=== PATIENT | female | born 1970 | race Caucasian/White ===

== ENCOUNTER → 2017-07-20 | Outpatient (CLI) | payer OTHER ==
[~2017-07-20] MED LIST: BUPR-79 PO; FLX/5 PO; RXC5 PO
== END | disposition home or self-care (01) ==
LOC: C.LABSPEC 16:48
PROVIDERS: ATTEND Orthopaedic Surgery
DX: T81.4XXA Infection following a procedure, initial encounter (principal); Y83.9 Surgical procedure, unspecified as the cause of abnormal reaction of the patient, or of later complication, without mention of misadventure at the time of the procedure

== ENCOUNTER 2022-05-30 08:22 | Inpatient (IN) ==
--- NOTE | 2022-05-03 14:47 | PAT Medication Instructions ---
Medication Instructions Date of Service May 03, 2022 Home Medications Medication Instructions Recorded albuterol sulfate 90 mcg/actuation 2 puff inhalation BID #18 grams 01/11/19 aerosol inhaler (Ventolin HFA) clonazepam 1 mg tablet (Klonopin) 1 mg PO BID PRN Anxiety #60 tabs 01/11/19 ibuprofen 200 mg tablet 200 - 600 mg PO DIRECTED PRN 01/11/19 Pain #20 tabs ibuprofen 600 mg tablet 600 mg PO TID #90 tabs 06/05/19 albuterol sulfate 90 mcg/actuation aerosol inhaler (Ventolin HFA) 2 puff inhalation BID cholecalciferol (vitamin D3) 50 mcg (2,000 unit) capsule 2,000 units PO QAM clonazepam 1 mg tablet (Klonopin) 1 mg PO BID PRN ibuprofen 200 mg tablet 200 - 600 mg PO DIRECTED PRN duloxetine 30 mg capsule,delayed release 30 mg PO DAILY duloxetine 60 mg capsule,delayed release 60 mg PO DAILY ibuprofen 600 mg tablet 600 mg PO TID Medical Marijauna 1 dose inhalation DAILY PRN buprenorphine 100 mg/0.5 mL solution,exten.rel.subcutaneous syringe 100 mg subcut MONTHLY Continue as directed duloxetine 30 mg capsule,delayed release 30 mg PO DAILY duloxetine 60 mg capsule,delayed release 60 mg PO DAILY buprenorphine 100 mg/0.5 mL solution,exten.rel.subcutaneous syringe 100 mg subcut MONTHLY ASK your surgeon for instructions ibuprofen 200 mg tablet 200 - 600 mg PO DIRECTED PRN ibuprofen 600 mg tablet 600 mg PO TID STOP taking 24 hours before surgery Medical Marijauna 1 dose inhalation DAILY PRN DO NOT take the morning of surgery cholecalciferol (vitamin D3) 50 mcg (2,000 unit) capsule 2,000 units PO QAM Take morning of surgery With a small sip of water, OTHERWISE NOTHING TO EAT OR DRINK AFTER MIDNIGHT: albuterol sulfate 90 mcg/actuation aerosol inhaler (Ventolin HFA) 2 puff inhalation BID clonazepam 1 mg tablet (Klonopin) 1 mg PO BID PRN(if needed) Take evening before surgery albuterol sulfate 90 mcg/actuation aerosol inhaler (Ventolin HFA) 2 puff inhalation BID clonazepam 1 mg tablet (Klonopin) 1 mg PO BID PRN(if needed) Other Notes If you have any questions please call us at [phone] or [phone] or [phone] or [phone]
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
[~2022-05-30 08:22] MED LIST changes: +ACETAMINOPHEN 500 MG TAB PO SCH; -BUPR-79 PO; +CeleBREX 200 MG CAP PO SCH; -FLX/5 PO; +GABAPENTIN 900 MG DOSE PO SCH; +LR 15ML/HR IV SCH; -RXC5 PO; +ceFAZolin 1000MG 1,000 MG/7.5 ML SYR IV SCH
[2022-05-30] MEDS ORDERED: ePHEDrine sulfate 50 MG/ML AMP IV PRN (08:51)
[2022-05-30] MEDS ORDERED: HYDROmorphone INJ 1 MG/ML SYRINGE IV PRN ×2 (08:51→13:22)
[2022-05-30] MEDS ORDERED: ATROPINE SULFATE 0.1 MG/ML 10ML SYR IV PRN (08:51)
[2022-05-30] MEDS ORDERED: ONDANSETRON INJ 2 MG/ML 2 ML VIAL IV PRN ×2 (08:51→13:22)
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
--- NOTE | 2022-05-30 09:30 | History & Physical Bridge Note ---
Date of Service May 30, 2022 History & Physical Bridge Note I have examined the patient, reviewed the History & Physical and in the interval since the performance of the History & Physical I have noted the following changes of clinical significance: no changes noted
[2022-05-30] MEDS ORDERED: BUPIVACAINE/EPINEPHRINE 0.25% 1:200,000 30 ML VIAL ONE (09:40)
[2022-05-30] MEDS ORDERED: ceFAZolin 330 MG/ML 1 GM VIAL ONE (09:40)
[2022-05-30] MEDS ORDERED: PHENYLEPHRINE 100MCG/ML 5ML SYR ONE (10:38)
[2022-05-30] MEDS ORDERED: ePHEDrine sulfate 50 MG/ML SYR ONE (10:38)
[2022-05-30] MEDS ORDERED: ROCURONIUM BROMIDE 10 MG/ML 5 ML VIAL IV ONE (10:38)
[2022-05-30] MEDS ORDERED: LARYING-O-JET KIT (LTA) ONE (10:38)
[2022-05-30] MEDS ORDERED: GLYCOPYRROLATE 0.2 MG/ML VIAL ONE (10:38)
[2022-05-30] MEDS ORDERED: MIDAZOLAM HCL 1 MG/ML 2ML VIAL ONE (10:38)
[2022-05-30] MEDS ORDERED: DEXAMETHASONE SOD INJ 4 MG/ML VIAL ONE (10:38)
[2022-05-30] MEDS ORDERED: ONDANSETRON INJ 2 MG/ML 2 ML VIAL ONE (10:38)
[2022-05-30] MEDS ORDERED: PROPOFOL IV EMULSION 10 MG/ML 20 ML VIAL IV ONE (10:38)
[2022-05-30] MEDS ORDERED: NEOSTIGMINE METHYLSULFATE 1 MG/ML 10ML VIAL ONE (10:38)
[2022-05-30] MEDS ORDERED: fentaNYL citrate 100 MCG/2 ML VIAL ONE (10:38)
[2022-05-30] MEDS ORDERED: LIDOCAINE 2% MPF LOCAL 5 ML VIAL INFIL ONE (10:38)
[2022-05-30] MEDS ORDERED: HYDROmorphone INJ 2 MG/ML SYR/VIAL ONE (10:44)
[2022-05-30] MEDS ORDERED: FLOSEAL HEMOSTATIC MATRIX 10ML TOP ONE (10:54)
--- NOTE | 2022-05-30 11:43 | Operative Report ---
Post Operative Report Pre & Post Diagnosis Operation Date: 05/30/22 09:55 Pre-Op Diagnosis: Lumbar stenosis with neurogenic claudication Post-Op Diagnosis: Lumbar stenosis with neurogenic claudication I identified the patient and participated in the time-out.: Yes Procedure Operation Date: 05/30/22 09:55 Actual Procedures #1 removal of instrumentation L3. #2 exploration of fusion L3-L4. #3 lumbar decompression bilateral medial facetectomies and foraminotomies L1-L2 L2-L3. #4 posterior spinal fusion L2-L3. #5 placement posterior instrumentation L2-L3. #6 interbody fusion L2-L3. #7 placement of Spira 9 mm cage at L2-L3. #8 placement of locally harvested morselized autograft in the posterior gutters per #9 placement of I factor model V toss in the interbody space and posterior lateral gutters. 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 Description of Procedure Patient was met with identified informed consent obtained. Patient was then taken to the operative suite underwent ablation placed in a prone position the John table top Kameron frame. All bony prominences well-padded eyes inspected to ensure no external pressure placed upon them. This point lumbar spine was prepped and draped sterile fashion. Sharp dissection with the assistance of Bovie cautery was performed down to and exposing the lamina and transverse processes of L2 and instrumentation at L3-L4 bilaterally. And then proceeded move the connector and pedicle screw at L3 and explore the fusion mass at L3-L4 bilaterally noting it to be mature and intact. Then performed a complete laminectomy of L2 partial laminectomy of L1 including bilateral medial facetectomies and foraminotomies addressing severe spinal stenosis. Pedicle screws were then placed L2 and a miguel was connected from L2 to the pre-existing miguel at L3-L4 with a connector. By way of transforaminal approach on the right a complete discectomy of L2-L3 was performed endplates curetted to subcortical bleeding bone and 9 x 26 mm spiral cage with I factor tapped in position. The rods then locked in final position bilaterally. The transverse processes of L2 and L3 burred to subcortical bleeding bone. I factor model V toss and locally harvested morselized autograft was placed in the posterior gutters. 15 round YANETH drain inserted. The incision was then closed with 1 Vicryl the fascia 2-0 Vicryl subcutaneously and 4 Monocryl for final skin closure. Steri-Strip Steri- Strips placed. Patient waken taken to PACU in stable condition. Please note spinal cord monitoring was utilized at the procedure no changes noted. Lastly Jewels Cisneros was present at the entire surgery and while the patient positioning complex portions of the surgery and final skin closure. I attest to the content of the Intraoperative Record and any orders documented therein. Any exceptions are noted below.
[2022-05-30] MEDS: fentaNYL citrate 100 MCG/2 ML VIAL IV PRN ×3 (12:05→12:18)
--- NOTE | 2022-05-30 12:47 | Fluoroscopy Report ---
[place] lumbar spine 2-3V HISTORY: 51 years-old Female L2-3 DFI/POSS L3-S1 HR COMPARISON: CT abdomen and pelvis 04/23/2018, lumbar spine radiographs 02/05/2020 TECHNIQUE: 2 spot fluoroscopic images of the lumbar spine were obtained utilizing 15.1 seconds fluoro scopy time FINDINGS: Posterior interbody miguel and screw fusion hardware redemonstrated at L3-L5 with discectomy changes at L4-L5. Interval posterior fusion with discectomy at L2-L3. Hardware appears intact. No acute fracture notified.. IMPRESSION: Fluoroscopic assistance as above. ACT 112: Negative or not required by law. The above report was generated using voice recognition software. It may contain grammatical, syntax o r spelling errors. Electronically signed by: Mariano Braden M.D. 05/30/2022 12:45 PM
[2022-05-30] MEDS ORDERED: FAMOTIDINE 20 MG TAB PO PRN (13:22)
[2022-05-30] MEDS ORDERED: SOD PHOSPHATE/SOD BIPHOSPHATE ENEMA 132 ML BTL PR PRN (13:22)
[2022-05-30] MEDS ORDERED: hydrOXYzine HCl 25 MG TAB PO PRN (13:22)
[2022-05-30] MEDS ORDERED: ACETAMINOPHEN 500 MG TAB PO PRN (13:22)
[2022-05-30] MEDS ORDERED: HYDROmorphone INJ 0.5 MG/0.5 ML SYR IV PRN (13:22)
[2022-05-30] MEDS ORDERED: MAGNESIUM HYDROXIDE SUSP 30 ML UDC PO PRN (13:22)
[2022-05-30] MEDS ORDERED: ALUMINUM/MAGNESIUM SUSP 30 ML UDC PO PRN (13:22)
[2022-05-30] MEDS ORDERED: traMADol HCL 50 MG TABLET PO PRN (13:22)
[2022-05-30] MEDS ORDERED: METOCLOPRAMIDE HCL INJ 5 MG/ML 2 ML VIAL IV PRN (13:22)
[2022-05-30] MEDS ORDERED: NALOXONE HCL 0.4 MG/1 ML VIAL/CARP IV PRN (13:22)
[2022-05-30] MEDS ORDERED: ACETAMINOPHEN 1,000 MG/100 ML VIAL IV PRN (13:22)
[2022-05-30] MEDS ORDERED: LORazepam 0.5 MG in SYRINGE 0 ML IV PRN (13:22)
[2022-05-30] MEDS ORDERED: diphenhydrAMINE Capsule 25 MG CAP PO PRN (13:22)
[2022-05-30] MEDS ORDERED: clonazePAM 1 MG TAB PO PRN (13:22)
[2022-05-30] MEDS ORDERED: bisacodyL 10 MG SUPP PR PRN (13:22)
[2022-05-30] MEDS ORDERED: LORazepam 0.5 MG TAB PO PRN (13:22)
[2022-05-30] MEDS ORDERED: ONDANSETRON 4 MG OD TAB PO PRN (13:22)
[2022-05-30] MEDS ORDERED: PROMETHAZINE HCL 12.5 MG in SODIUM CHLORIDE 0.9% 50 ML IV PRN (13:22)
[2022-05-30] MEDS: LACTATED RINGER'S 1,000 ML IV SCH (13:43)
[2022-05-30] MEDS ORDERED: MEDICAL MARIJUANA INH PRN (13:44)
--- NOTE | 2022-05-30 13:48 | Anesthesiology Progress Note ---
Date of Service May 30, 2022 Anesthesia Post Procedure Vital Signs Vital Signs: Temp Pulse Pulse Resp BP Pulse Ox O2 Del Method 05/30/22 13:22 Nasal Cannula 05/30/22 13:10 97.9 F 86 16 143/90 H 99 Nasal Cannula 05/30/22 12:45 97.9 F 68 20 135/79 94 Nasal Cannula 05/30/22 12:35 75 13 140/88 97 Oxymask 05/30/22 12:25 76 15 142/82 H 97 Oxymask 05/30/22 12:15 79 18 112/87 100 Oxymask 05/30/22 12:05 78 17 135/86 100 Oxymask 05/30/22 11:57 97.3 F L 89 20 140/82 100 Oxymask 05/30/22 08:59 99.0 F 82 18 130/82 95 Room Air O2 Flow Rate 05/30/22 13:22 2 05/30/22 13:10 2 05/30/22 12:45 2 05/30/22 12:35 4 05/30/22 12:25 4 05/30/22 12:15 4 05/30/22 12:05 6 05/30/22 11:57 6 05/30/22 08:59 Pain Intensity Back: Pain Intensity: 8 Transfer of Care Handoff Completed per policy Notes Mental Status: alert / awake / arousable and participated in evaluation Patient Amnestic to Procedure: Yes Nausea / Vomiting: adequately controlled Pain: adequately controlled Airway Patency, RR, SpO2: stable & adequate BP & HR: stable & adequate Hydration State: stable & adequate Anesthetic Complications: no major complications apparent and Pt Satisfied with anesthetic care
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
[2022-05-30] MEDS: oxyCODONE HCL IR 5 MG TAB (IMMEDIATE RELEASE) PO PRN ×2 (16:59→21:04)
[2022-05-30] MEDS: ceFAZolin 1000MG 1,000 MG/7.5 ML SYR IV SCH (18:38)
[2022-05-30] MEDS: ALBUTEROL HFA 8 GM INHALER INH SCH (19:04)
[2022-05-30] MEDS: DOCUSATE SODIUM/SENNA 50/8.6MG TAB PO SCH (19:28)
[2022-05-31] MEDS: oxyCODONE HCL IR 5 MG TAB (IMMEDIATE RELEASE) PO PRN ×3 (01:51→13:41)
[2022-05-31] MEDS: ceFAZolin 1000MG 1,000 MG/7.5 ML SYR IV SCH (02:56)
[2022-05-31] MEDS: LACTATED RINGER'S 1,000 ML IV SCH (02:58)
[2022-05-31] MEDS: POLYETHYLENE (MIRALAX) 17 GM PACK PO SCH ×3 (05:43→16:57)
[2022-05-31] MEDS: ALBUTEROL HFA 8 GM INHALER INH SCH ×2 (06:15→18:04)
[2022-05-31 07:18] LABS: Basophils # (auto) 0.02 K/uL (0-0.2); Basophils % (auto) 0.2 %; Hematocrit (blood only) 39.7 % (34.1-44.9); Hemoglobin 12.9 g/dl (12.0-16.0); Immature Granulocytes # (auto) 0.03 K/uL (0.00-0.02); Immature Granulocytes % (auto) 0.3 %; Lymphocytes % (auto) 16.7 %; Mean Corpuscular Hemoglobin 32.2 pg (25.0-34.0); Mean Corpuscular Hgb Conc 32.5 g/dL (32.0-36.0); Mean Platelet Volume 9.4 fL (9.4-12.3); Monocytes # (auto) 0.68 K/uL (0.24-0.82); Monocytes % (auto) 5.7 %; Neutrophils # (auto) 9.22 K/uL (1.4-6.5); Neutrophils % (auto) 77.1 %; Platelet Count 322 K/uL (130-400); RDW Coefficient of Variation 14.3 % (11.5-14.5); RDW Standard Deviation 52.5 fL (36.4-46.3); Red Blood Count 4.01 M/uL (3.93-5.22); White Blood Count 11.95 K/ul (4.8-10.8)
[2022-05-31 07:37] LABS: BUN Creatinine Ratio 19.3 (10-20); Calcium 9.3 mg/dl (8.5-10.1); Creatinine Clr Calc Pharmacy 106.3 ml/min; Est GFR (African American) 125.3 ml/min; Est GFR (Non-African American) 108.1 ml/min; Potassium 3.7 mmol/L (3.5-5.1)
[2022-05-31] MEDS: CHOLECALCIFEROL 1,000 UNITS 25 MCG TAB PO SCH (07:48)
[2022-05-31] MEDS: DULoxetine HCL 30 MG CAP PO SCH (07:48)
[2022-05-31] MEDS: dexAMETHasone 6 MG in SYRINGE 0 ML IV SCH (07:48)
[2022-05-31] MEDS: DULoxetine HCL 60 MG CAP PO SCH (07:48)
--- NOTE | 2022-05-31 10:27 | Orthopedic Progress Note ---
Date of Service May 31, 2022 Assessment & Plan (1) Lumbar stenosis with neurogenic claudication: Admission and Anticipated Discharge Date Admission Date: May 30, 2022 Subjective Back pain controlled leg pain markedly improved Physical Exam Physical Exam: Patient shared at bedside. Is good strength testing. Results & Data ([facility]) Vital Signs (Past 12 Hours) Vital Signs Temp Pulse Resp BP Pulse Ox O2 Del Method 05/31/22 07:14 37.5 C 84 16 119/74 93 Room Air 05/31/22 06:16 84 16 98 Room Air 05/31/22 04:53 36.9 C 70 18 110/72 96 Room Air 05/30/22 22:39 36.9 C 88 18 103/63 93 Room Air
[2022-05-31] MEDS: NICOTINE 21 MG/24 HR TDSY TD SCH (13:54)
[2022-05-31] MEDS: DOCUSATE SODIUM/SENNA 50/8.6MG TAB PO SCH (19:17)
[2022-06-01] MEDS: oxyCODONE HCL IR 5 MG TAB (IMMEDIATE RELEASE) PO PRN ×2 (01:06→11:59)
[2022-06-01] MEDS: POLYETHYLENE (MIRALAX) 17 GM PACK PO SCH ×3 (01:06→11:27)
[2022-06-01] MEDS: ALBUTEROL HFA 8 GM INHALER INH SCH (05:34)
[2022-06-01] MEDS: dexAMETHasone 6 MG in SYRINGE 0 ML IV SCH (07:50)
[2022-06-01] MEDS: NICOTINE 21 MG/24 HR TDSY TD SCH (07:53)
[2022-06-01] MEDS: CHOLECALCIFEROL 1,000 UNITS 25 MCG TAB PO SCH (07:55)
[2022-06-01] MEDS: DULoxetine HCL 30 MG CAP PO SCH (07:55)
[2022-06-01] MEDS: DULoxetine HCL 60 MG CAP PO SCH (07:55)
--- NOTE | 2022-06-01 08:25 | Discharge Summary ---
Date of Service June 01, 2022 Admission HPI Per Admitting Provider This is a 51-year-old female known to me the presents with marked decline in status continued back and bilateral leg pain. Failing course of nonoperative care she is here for surgical invention. Admission Exam (Per Admitting) Constitutional WD/WN, vitals as above Eyes normal visual barajas by confrontation ENMT external ear and nose normal, oropharynx normal Neck normal visual inspection Respiratory normal respiratory effort Cardiovascular Extremities: normal capillary refill Gastrointestinal (Abdomen) Inspection/Auscultation: abdomen normal to inspection Musculoskeletal Spine: + pain with thoraco-lumbar ROM Extremities: extremities normal to inspection Skin no rashes, warm and dry Neurologic normal touch/pain/proprioception and moves all extremities Psychiatric A+Ox3, euthymic affect Eye Contact: good eye contact Speech: normal rate/rhythm/volume of speech Discharge Data Consultations 05/30/22 13:22 Consult Hospitalist Routine Procedures Performed Operation Date: 05/30/22 09:55 Actual Procedures p L2-L3 Decompression Fusion with Interbody Cage L2-L3, Spinal Cord Monitoring - Emir Baker DO s Pedicle Screw Hardware Removal L3 - Emir Baker DO Hospital Course (1) Lumbar stenosis with neurogenic claudication: Patient is being discharged home on postoperative day 2 status post TLIF L2-3. She is had an uneventful hospital course. Pain is controlled. She is passing flatus but no bowel movement. YANETH drain has been diminishing every shift. She is making great progress in physical therapy. Lab values have been stable. Discharge Instructions ACTIVITY RECOMMENDATIONS: SELF CARE INSTRUCTIONS AFTER THORACIC/LUMBAR FUSIONS 1. You may walk to your tolerance. It is good exercise for your legs and back. Expect some back and intermittent leg aches and pains. 2. You may perform "counter-top" level activities (make a sandwich, merna with a project, etc.). 3. No bending or lifting of more than 10 pounds or back twisting of any nature (roll like a log when turning in bed). 4. You may ride in a car for 20-30 minutes at a time. No driving until after your first visit with your doctor. 5. Frequent changes of position and restricting sitting to 30 minutes at a time will help limit the amount of back spasms and stiffness you may experience. 6. You may discontinue the use of ambulatory aids (cane, crutches, etc.) once your strength and confidence allow. 7. You may sales and merchandising representative the shower and let water strike your incision when you arrive home at least once daily. Do not take a tub bath, sit in a hot tub or go into a swimming pool until after your first recheck in the office. SPECIAL CARE INSTRUCTIONS: VERY IMPORTANT TO READ AND REVIEW A. Your surgical incision has been closed with a cosmetic suture under the skin that will dissolve in about 6 weeks. In 14 days, you can use a pair of clean scissors and cut the suture that is left outside of the skin at the ends of your incision. 1. The small skin tapes can be removed 7 days after surgery if they have not fallen off by that point. 2. You may keep the wound open to air as much as possible to promote healing after post-op day number 5 unless told otherwise by your doctor. 3. If you think the wound looks like it is becoming infected (redness or worsening drainage) and/or you are experiencing fever, chill or worsening back pain and muscle spasms, contact the office so that we may evaluate you as soon as possible. B. Complications are uncommon, but please contact us if you have any signs or symptoms of: 1. wound infection (fever higher than 102.5 degrees F, redness, separation of wound, drainage, or increasing pain from the incision) 2. blood clots in legs (pain, swelling, redness and warmth in legs) 3. urinary tract infection (fever higher than 102.5 degrees F, burning upon urination or increased frequency of urination) 4. nerve problems (inability to walk on your toes or heels, numbness, loss of bowel or bladder control) 5. any other symptoms that concern you C. Please call the office at if you have any concerns or questions about your operation or recovery. D. No smoking! Smoking drastically decreases the chance of a solid fusion. E. Do not take any anti-inflammatory medications (Indocin, Advil, Motrin, Aspirin, Naprosyn, etc.) as these may inhibit the chance of a solid fusion. Tylenol is okay to take for pain. MANAGING PAIN AFTER SPINAL SURGERY 1. Narcotic medication is intended for short-term use and will be provided for surgical pain. Surgical pain usually lasts for a period of 4-6 weeks. Narcotic medication includes Percocet, Vicodin, Darvocet, Tylenol #3 or Lortab. 2. Longer-term pain is more appropriately treated with non-narcotic medication such as Tylenol ES. 3. Muscle spasm is not appropriately treated with narcotics. Muscle relaxers such as Soma, Flexeril or Skelaxin can be used along with Tylenol ES. 4. Remember that we all live with some "aches and pains". This is not unusual or uncommon after an injury or as we get older. a. Back pain is expected and may include muscle spasms for 4 to 6 weeks after surgery. The pain should gradually improve. If the pain worsens for no apparent reason, please contact the office. b. Intermittent leg pain may also be experienced and should not be concerned about unless it worsens for no apparent reason. If so, please contact the office. 5. We will provide appropriate medication within the normal guidelines of their prescribed use. We will also be very cautious and aware of potential abuse and extended duration of patients' medication needs. a. Pain medications are for your comfort and to assist with sleep and rest so that the tissue can heal. They are not provided in order to return to normal activity and should not be used through the day. To do so or worsening pain at night can result from ongoing tissue damage and development of tolerance to the prescribed medicine. 6. Please allow 2-3 days to process refills. Prescriptions will not be mailed but must be picked up at the office. FOLLOW UP VISIT: Keep your scheduled follow-up appointment. Any questions, please call the office at .
== END 2022-06-01 14:16 | disposition home or self-care (01) | DRG 455 ==
LOC: ASU 08:22 → 3E 11:47
DX: M48.062 Spinal stenosis, lumbar region with neurogenic claudication; G89.29 Other chronic pain; Z98.1 Arthrodesis status; J44.9 Chronic obstructive pulmonary disease, unspecified; F41.9 Anxiety disorder, unspecified; Z79.891 Long term (current) use of opiate analgesic; F17.210 Nicotine dependence, cigarettes, uncomplicated; E55.9 Vitamin D deficiency, unspecified; Z79.899 Other long term (current) drug therapy; F32.A Depression, unspecified

== ENCOUNTER 2024-05-03 08:52 | Inpatient (IN) ==
--- NOTE | 2024-04-12 11:56 | PAT Medication Instructions ---
Medication Instructions Date of Service April 12, 2024 Home Medications cholecalciferol (vitamin D3) 50 mcg (2,000 unit) capsule 2,000 units PO QAM duloxetine 60 mg capsule,delayed release 60 mg PO QAM Medical Marijauna 1 dose inhalation DAILY PRN Pain albuterol sulfate 90 mcg/actuation aerosol inhaler (Ventolin HFA) 2 puff inhalation DIRECTED PRN Shortness Of Breath Or Wheezing clonazepam 1 mg tablet (Klonopin) 1 mg PO TID PRN Anxiety DO NOT take the morning of surgery cholecalciferol (vitamin D3) 50 mcg (2,000 unit) capsule 2,000 units PO QAM Medical Marijauna 1 dose inhalation DAILY PRN Pain Take morning of surgery With a small sip of water, OTHERWISE NOTHING TO EAT OR DRINK AFTER MIDNIGHT: duloxetine 60 mg capsule,delayed release 60 mg PO QAM albuterol sulfate 90 mcg/actuation aerosol inhaler (Ventolin HFA) 2 puff inhalation DIRECTED PRN Shortness Of Breath Or Wheezing (use if needed; please bring rescue inhaler with you to hospital day of surgery if possible) clonazepam 1 mg tablet (Klonopin) 1 mg PO TID PRN Anxiety (if needed) Take evening before surgery albuterol sulfate 90 mcg/actuation aerosol inhaler (Ventolin HFA) 2 puff inhalation DIRECTED PRN Shortness Of Breath Or Wheezing (if needed) clonazepam 1 mg tablet (Klonopin) 1 mg PO TID PRN Anxiety (if needed) Medical Marijauna 1 dose inhalation DAILY PRN Pain (if needed) Other Notes If you have any questions please call us at [phone] or [phone] or [phone] or [phone]
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
[2024-05-03] MEDS: GABAPENTIN 900 MG DOSE PO SCH (09:41)
[2024-05-03] MEDS: CeleBREX 200 MG CAP PO SCH (09:41)
[2024-05-03] MEDS: ACETAMINOPHEN 500 MG TAB PO SCH (09:42)
[2024-05-03] MEDS: LR 15ML/HR IV SCH (09:51)
[2024-05-03] MEDS: LR 60ML/HR IV SCH (09:52)
[2024-05-03] MEDS ORDERED: FLUMAZENIL 0.1 MG/1 ML 10 ML VIAL IV PRN (09:53)
[2024-05-03] MEDS ORDERED: ATROPINE SULFATE 0.1 MG/ML 10ML SYR IV PRN (09:53)
[2024-05-03] MEDS ORDERED: PROMETHAZINE HCL 6.25 MG in SODIUM CHLORIDE 0.9% 50 ML IV PRN (09:53)
[2024-05-03] MEDS ORDERED: LABETALOL HCL IV 5 MG/ML 20ML IV PRN (09:53)
[2024-05-03] MEDS ORDERED: NALOXONE HCL 0.4 MG/1 ML VIAL/CARP IV PRN ×2 (09:53→15:06)
[2024-05-03] MEDS ORDERED: ONDANSETRON INJ 2 MG/ML 2 ML VIAL IV PRN ×2 (09:53→15:06)
[2024-05-03] MEDS ORDERED: ePHEDrine sulfate 50 MG/ML AMP IV PRN (09:53)
[2024-05-03 10:19] LABS: INR 0.9 (0.9-1.1); Partial Thromboplastin Time 26 Seconds (21-31); Prothrombin Time 10.3 Seconds (9.0-12.0)
[2024-05-03] MEDS ORDERED: fentaNYL citrate PF 100 MCG/2 ML VIAL ONE (10:44)
[2024-05-03] MEDS ORDERED: DEXAMETHASONE SOD INJ 4 MG/ML VIAL ONE (10:44)
[2024-05-03] MEDS ORDERED: MIDAZOLAM HCL 1 MG/ML 2ML VIAL ONE (10:44)
[2024-05-03] MEDS ORDERED: PROPOFOL IV EMULSION 10 MG/ML 20 ML VIAL IV ONE (10:44)
[2024-05-03] MEDS ORDERED: LIDOCAINE 2% 2 ML VIAL/AMP(20MG/ML) INFIL ONE ×2 (10:44→13:19)
[2024-05-03] MEDS ORDERED: ONDANSETRON INJ 2 MG/ML 2 ML VIAL ONE (10:44)
[2024-05-03] MEDS ORDERED: HYDROmorphone INJ 2 MG/ML SYR/VIAL ONE (10:45)
--- NOTE | 2024-05-03 10:56 | History & Physical Bridge Note ---
Date of Service May 03, 2024 History & Physical Bridge Note I have examined the patient, reviewed the History & Physical and in the interval since the performance of the History & Physical I have noted the following changes of clinical significance: no changes noted
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
[2024-05-03] MEDS: ceFAZolin 2000MG 2,000 MG/15 ML SYR IV SCH (11:32)
[2024-05-03] MEDS: BUPIVACAINE/EPINEPHRINE 0.25% 1:200,000 30 ML VIAL ONE (12:00)
--- OUTSIDE RECORDS SUMMARY | 2024-05-03 12:19 | External Medical Summary | Continuity of Care Document ---
Author Name Unknown Organization [place] [id number] [facility] [address] [place] [id number] Care Team Providers Care Clinical Transplant Coordinator Name Role Phone Yarely Rosenbaum Primary Care Physician [phone] Encounter [facility] [id number] Date(s): 04/19/24 - 04/19/24 [facility] [address] [facility] [address] [facility] [address] [facility] [address] [place] [address] [phone] Encounter Diagnosis Acute URI(Discharge Diagnosis) - 04/19/24 Discharge Disposition: Home or Self Care Attending Physician: YUNG Rosenbaum Kimberly A Allergies, Adverse Reactions, Alerts No Known Allergies Assessment and Plan Extracted from: Title:Acute URI Author:MD Colin, Huber Juan David e:04/19/24 1.Acute URI Acute,uncomplicated,not at goal. -No diagnostic tests performed in office. -Patient's symptoms consistent withacuterhinosinusitis. Likelyviral. -Negative COVID-19 RNA PCR at [facility] rules out COVID-19 as cause of her symptoms. -Recommended OTC symptomatic management:[id number] bid. Also recommendedincreasingwater intake, start usingSymbicortinhaler. -Recommended that patient either call or returnto clinic, shouldsymptomsfail to improve despite conservative management. Immunizations Given and Recorded Vaccine Date Status Refusal Reason pneumococcal 23-valent vaccine 07/02/19 Given pneumococcal 23-valent vaccine 1 04/29/16 Recorded tetanus/diphtheria/pertuss, acel (Tdap) 2 12/20/17 Recorded pneumococcal 7-valent vaccine 3 04/29/16 Recorded measles/mumps/rubella virus vaccine 4 05/23/08 Rec orded 1Result Comment: 2019-07-10: Historical information-source unspecified 2Result Comment: 2019-07-10: Historical information-source unspecified 3Result Comment: 2019-07-10: Historical information-source unspecified 4Result Comment: 2019-07-10: Historical information-source unspecified Medications clonazePAM 0.1 mg/mL oral suspension (compound) TAKE 1 TABLET TWICE A DAY NEEDED Start Date: 07/02/19 Status: Ordered cranberry Start: 04/27/20 10:34:00 AM EDT, once daily Start Date: 04/27/20 Status: Ordered cyclobenzaprine 5 mg oral tablet Start: 02/05/20 10:29:00 AM EDT, 1 tab, PO, tid, Disp# 30 tab, Refills: 0, PRN: as needed for spasm, Pharmacy: [facility]/pharmacy #[id number] Start Date: 02/05/20 Stop Date: 02/15/20 Status: Ordered Diflucan 150 mg oral tablet Start: 05/12/22 2:19:00 PM EDT, See Instructions, Disp# 2 tab, Refills: 0, 1 tab PO now & repeatin 5 days, Pharmacy: [facility] Start Date: 05/12/22 Status: Ordered DULoxetine 60 mg oral delayed release capsule Start: 07/02/19 10:06:00 AM EST, 2 cap, PO, Daily Start Date: 07/02/19 Status: Ordered ibuprofen 600 mg oral tablet Start: 05/12/22 2:19:00 PM EDT, See Instructions, Disp# 60 tab, Refills: 1, TAKE 1 TABLET 4 TIMES A DAY NEEDED FOR ARTHRITIS, Pharmacy: [facility] Start Date: 05/12/22 Status: Ordered Nicotine System Kit transdermal film, extended release Start: 05/04/22 12:27:00 PM EDT, 1 patch, transdermal, Daily, Disp# 1 each, Refills: 0, Use one 21 mg patch/day for weeks 1 through 4, then use one 14 mg patch/day for weeks 5 through 6, then use one 7 mg patch/day for weeks 7 through 8., Indication: History of smoking MORE THAN 10 cigarettes per day., Pharmacy: [facility] Start Date: 05/04/22 Status: Ordered Sublocade 300 mg/1.5 mL subcutaneous solution, extended release Start: 05/04/22 9:16:00 AM EDT Start Date: 05/04/22 Status: Ordered Symbicort 80 mcg-4.5 mcg/inh inhalation aerosol Start: 11/05/19 12:46:00 PM EDT, 2 puff, inhaled, bid, Disp# 1 each, Refills: 5, Pharmacy: [facility]/pharmacy #[id number] Start Date: 11/05/19 Status: Ordered Ventolin HFA 90 mcg/inh inhalation aerosol Start: 11/05/19 4:41:00 PM EDT, 2 puff, inhaled, qid, Disp# 1 each, Refills: 5, PRN: as needed for wheezing, Pharmacy: [facility]/pharmacy #[id number] Start Date: 11/05/19 Status: Ordered Vitamin D3 400 intl units oral tablet Start: 07/02/19 10:09:00 AM EST, 1 tab, PO, Daily Start Date: 07/02/19 Status: Ordered Mental Status 04/19/24 Barriers to Learning one year None evide nt Mandatory Health Literacy Documentation Yes Health Literacy Communication Barriers N ever Primary Language Yoruba Problem List Condition Confirmation Course Effective Dates Status Health St atus Informant Body mass index [BMI] 23.0-23.9, adult Confirmed Active COPD without exacerbation Confirmed Active Chronic pain Confirmed Active S/P cervical spinal fusion Confirmed Active History of lumbar fusion Confirmed Active Immunization refused Confirmed Active Neuropathy Confirmed Active Left arm numbness Confirmed Active Encounter for smoking cessation counseling Confirmed Active Tobacco user Confirmed Active Viral URI with cough Confirmed Active Diagnosis Diagnosis Type Effective Dates Health Status Clini javier Service Informant Acute URI Discharge Diagnosis 04/19/24 Non-Specified Procedures Procedure Date Related Diagnosis Body Site Status Chest x-ray 1 05/04/22 Completed Examination of eye 2 08/25/20 Comp leted Spine X-ray 3 02/05/20 Completed EMG - Electromyography 4 02/12/19 Completed Colonoscopy 5 05/23/[address] of chest with contrast 6 03/13/14 Completed Echocardiogram 7 03/13/14 Complete d EKG 8 03/13/14 Completed PFT - Pulmonary function tests 9 03/13/14 Completed Chest X-ray 10 03/05/14 Completed EKG 11 03/05/14 Completed 1Emphysema without acute process 220/20 Right eye 20/60 Left eye 3Lumbar spine x-ray 1. No acute lumbar spine fracture 2. Status post L4-L5 and L5-S1 discectomies with L3-S1 posterior decompression and bilateral pedicle screw fusion. Hardware intact. 3. Moderate disc space narrowing at L2-L3. 4This study is remarkable for a very mild underlying ployneuropathy involving motor greater than sensory fibers. Separate mild ulnar conduction blocks across the elbows bilaterally are possible (or just part of the polyneuropathy). There was evidence for very mild acute left mid cervical radiculopathy and lower umbosacral radiculopathy bilaterally (all poorly localizable). There was no myopathy present. 5Impression: The entire examined colon is normal. Normal ileum. Random biosies done 61. There are faint tree-in-bud airspace opacities with an upper lobe predominance, as well as mild ground-glass changes in the right middle lobe. The appearance suggest an acute infectious or inflammatory pneumonitis. Clinical correlation will be required. 2. The lungs are otherwise clear. No pleural effusion is seen. 3. Mild emphysema. 7Normal biventricular systolic function. Trace mitral, pulmonic, and tricuspid regurgitation. Normalchamber dimensions. 8normal ECG 9Pre-bronchodilator spirometry is well within normal limits. There is no significant response to bronchodilator, but this should not preclude a therapy trial if clinically warranted. Lung volumes and diffusion capacity are well within normal limits. Clinical correlation is needed. 10No acute process 11normal sinus rhytm right atrial enlargement rightward axis pulmonary disease pattern Abnormal ECG Vital Signs Most recent to oldest [Reference Range]: 1 Patient Weight 57.6 kg (04/19/24 10:40 AM) Temperature [36.5-37.9 DegC] 36.5 DegC (04/19/24 10:40 AM) Heart Rate 98 bpm (04/19/24 10:40 AM) Respiratory Rate 18 br/min (04/19/24 10:40 AM) Blood Pressure 110/74mmHg (04/19/24 10:40 AM) Cuff Pulse Pressure 36 mmHg (04/19/24 10:40 AM) Social History Social History Type Response Tobacco Current every day sm oker, Cigarettes, Exposure to Secondhand Smoke: No. 1 per day. 35 year(s). Started age 16 Years. Smoking Status Current every day li t smoker Sex Female Sex Representation Female (finding) FCM Outpt Note * WiedMD siddiqui Joseph P: MODIFY MD Cuba Joseph P: MODIFY Event Display: FCM Outpt Note Authored Date: [id number] Chief Complaint Sick since Monday, went to [facility], covid test negative. Hot/cold, mucous, post nasal, productive cough. History of Present Illness Anni yearnel presentsto the clinictodaywiththe following cold/flu-like symptoms [id number](s): URI ROS Fever?No Chills?Yes Night sweats?Yes Myalgia?Yes Fatigue?Yes Sinus pressure?YesIf yes:frontalbilaterally Cough?Yes (productive) Rhinorrhea?Yes Nasal congestion?Yes Sore throat?Yes Shortness of breath?No._ Hoarseness?No Chest tightness/congestion?No Ear discomfort?Yes. Left ear Sick contacts?Yes Taken COVID-19 PCR test?No Watery, red, or sticky eyes?No Sneeze?No Dysgeusia/anosmia?dysgeusia Insomnia?No Nausea/vomiting?No -They triedalbuterol inhaler,_, and_, whichhelped some but not enough. -Patient feels her symptoms haveworsenedvs.symptom onset. -Patient most bothered bycoughcurrently. Review of Systems See HPI. Physical Exam Vitals & Measurements T:36.5C HR:98(Monitored) RR:18 BP:110/74 SpO2:95% WT:57.6kg WT:57.600kg(Dosing) PHQ2 Data(Data Documented on:04/19/2024 10:35) Emotional health assessment NEGATIVE General:Alert and orientedindividual inno acute distress. HEENT: Normocephalic. TMclear w/o effusion or erythemabilaterally.Moist,not swollen,nonery thematous,nonexudativeoropharynx.No cervical lymphadenopathy. Cardiovascular:Regular rate and rhythm.No murmurs or gallops. Respiratory:Lungs clear to auscultation bilaterally.Respirations arenon-labored.Psych:Mood-affect congruence. Reports no SI/HI. Speech is of normal pace and content. Assessment/Plan 1.Acute URI Acute,uncomplicated,not at goal. -No diagnostic tests performed in office. -Patient's symptoms consistent withacuterhinosinusitis. Likelyviral. -Negative COVID-19 RNA PCR at [facility] rules out COVID-19 as cause of her symptoms. -Recommended OTC symptomatic management:[id number] bid. Also recommendedincreasingwater intake, start usingSymbicortinhaler. -Recommended that patient either call or returnto clinic, shouldsymptomsfail to improve despite conservative management. Attestation I discussed the patient in detail regarding symptoms and findings today. I agree with the resident's note andplan to treat acute URI supportively. Sophia Cuba Problem List/Past Medical History Ongoing Body mass index [BMI] 23.0-23.9, adult Chronic pain COPD without exacerbation Encounter for smoking cessation counseling History of lumbar fusion Immunization refused Left arm numbness Neuropathy S/P cervical spinal fusion Tobacco user Viral URI with cough Procedure/Surgical History Chest x-ray| Service Date: 05/04/2022Examination of eye| Service Date: 08/25/2020pine X-ray| Service Date: 02/05/2020EMG - Electromyography| Service Date: 02/12/2019Colonoscopy| Service Date: 05/23/2018CT of chest with contrast| Service Date: 03/13/2014PFT - Pulmonary functiontests| Service Date: 03/13/2014EKG| Service Date: 03/13/2014Echocardiogram| Service Date: 03/13/2014| Service Date: 03/05/2014Chest X-ray| Service Date: 03/05/2014 Medications albuterol(Ventolin HFA 90 mcg/inh inhalation aerosol), 2 puff, inhaled, qid, PRN, 5 refills budesonide-formoterol(Symbicort 80 mcg-4.5 mcg/inh inhalation aerosol), 2 puff, inhaled, bid, 5 refills buprenorphine(Sublocade 300 mg/1.5 mL subcutaneous solution, extended release) cholecalciferol(Vitamin D3 400 intl units oral tablet), 400 Int_Unit= 1 tab, PO, Daily clonazePAM(clonazePAM 0.1 mg/mL oral suspension (compound)) cranberry cyclobenzaprine(cyclobenzaprine 5 mg oral tablet), 5 mg= 1 tab, PO, tid, PRN DULoxetine(DULoxetine 60 mg oral delayed release capsule), 120 mg= 2 cap, PO, Daily fluconazole(Diflucan 150 mg oral tablet), See Instructions ibuprofen(ibuprofen 600 mg oral tablet), See Instructions, 1 refills nicotine(Nicotine System Kit transdermal film, extended release), 1 patch, transdermal, Daily Allergies NKA No Known Medication Allergies Social History Smoking Status Current every day light smoker Alcohol - Low Risk Exercise - Does not exercise Home/Environment - Medium Risk Nutrition/Health - Medium Risk Substance Abuse - Medium Risk Type:Marijuana - Comments: medical ok & has [place] license Tobacco - High Risk Use:Current every day smoker Type:Cigarettes Exposure to Secondhand Smoke:No Tobacco use per day:1 Number of years:35 Started at age:16Years Family History Heart murmur: Mother. Hypertension: Mother. Stroke: Father and PGF. Health Status Family Member(s) Immunizations Vaccine Date Status pneumococcal 23-valent vaccine 07/02/2019 Given tetanus/diphtheria/pertuss, acel (Tdap) 12/20/2017 Recorded Comments : 2019-07-10: Historical information-source unspecified pneumococcal 23-valent vaccine 04/29/2016 Recorded Comments : 2019-07-10: Historical information-source unspecified pneumococcal 7-valent vaccine 04/29/2016 Recorded Comments : 2019-07-10: Historical information-source unspecified measles/mumps/rubella virus vaccine 05/23/2008 Recorded Comments : 2019-07-10: Historical information-source unspecified Recommendations Health Maintenance Pending(in the next year) OverDue Adult Influenza Vaccine due02/04/24and every 1year Due Body Mass Index due04/14/24and every 366day Adult COVID-19 Vaccination due04/19/24Unknown Frequency Adult Social Determinants of Health Screening due04/19/24Unknown Frequency Breast Cancer Screening due04/19/24Unknown Frequency Cervical Cancer Screening due04/19/24Unknown Frequency Hepatitis C Screening due04/19/24One-time only Pneumococcal Vaccine Adults and Adolescents with Chronic Illness due04/19/24One-time only Shingles Vaccine due04/19/24One-time only Due In Future Lipid Screening not due until10/02/24and every 1826day Satisfied(in the past 1 year) There are no satisfied recommendations within the defined date range Electronic Signature on File Electronically Reviewed/Signed by: Huber Shaw MD Author Signature Dt/Tm:04/19/2024 11:10 AM Resident Department of Family Medicine Electronically Reviewed/Signed by: Abe Cuba MD Cosigner Signature Dt/Tm: 04/19/2024 11:44AM Department of Family Medicine AO Patient Care team information Care Team Personnel Name: YUNG Rosenbaum, Yarely Vazquez Position: Physician Asst [facility] - Family Med Member Role: Primary Care Provider Address: [address] [place] [id number]"
[2024-05-03] MEDS: ceFAZolin 330 MG/ML 1 GM VIAL ONE (13:03)
[2024-05-03] MEDS ORDERED: SUGAMMADEX SODIUM 200 MG/2 ML VIAL IV ONE (13:12)
[2024-05-03] MEDS: FLOSEAL HEMOSTATIC MATRIX 10ML TOP ONE (13:16)
[2024-05-03] MEDS ORDERED: GLYCOPYRROLATE 0.2 MG/ML VIAL ONE (13:19)
--- NOTE | 2024-05-03 13:27 | Operative Report ---
Post Operative Report Pre & Post Diagnosis Operation Date: 05/03/24 10:35 Pre-Op Diagnosis: Lumbar spinal stenosis with neurogenic claudication Post-Op Diagnosis: Same I identified the patient and participated in the time-out.: Yes Procedure Operation Date: 05/03/24 10:35 Actual Procedures #1 lumbar decompression with bilateral medial facetectomies and foraminotomies T12-L1 L1-L2. #2 posterior spinal fusion T12-L2. #3 removal of instrumentation L2. #4 exploration of fusion L2-L3. #5 posterior instrumentation T12-L1 with connectors at L2-3. #4 interbody fusion L1-L2. #5 placement of Spira cage 8 x 26 mm at L1-L2. #6 placement locally harvested morselized autograft posterior gutters. #7 placement infuse collagen sponge combined with Koros bone graft in the posterior gutters and os design in the interbody space. #8 placement of versa wrap of the exposed dura. Surgeon Emir Baker, Food Tray Assembler Lito Garay Estimated Blood Loss 100 Findings Consistent with Post-Op Diagnosis Specimens None Indications This is a 53-year-old female presents problems diagnosis of failed course of nonoperative care is here for surgical intervention. Description of Procedure Patient was met with identified informed consent obtained. Patient was then taken to the operative suite underwent ablation placed in a prone position on the John table atop the Kameron frame. All bony promises well-padded eyes inspected to ensure no external pressure placed upon them. This point the thoracolumbar spine was prepped and draped in normal sterile fashion. Sharp dissection with the assistance of Bovie cautery performed down to and exposing the lamina and transverse processes of T12-L1 and instrumentation at L2-L3. I then proceed remove the the miguel and pedicle screw at L2 and connector at L3. I explored the fusion mass noting it to be mature and intact. I then performed a complete laminectomy of L1 including bilateral medial facetectomy facetectomies and foraminotomies followed by decompression of the T12 with bilateral medial facetectomies addressing also reticular stenosis. Pedicle screws were then placed in T12 L1-L2 bilaterally with assistance of fluoroscopy. By way of transforaminal approach on the right complete discectomy of L1-L2 was performed endplates guarded to subcortical bleeding bone and the 8 x 22 mm spiral cage filled with os design bone graft tapped in position. The proper size rods were then contoured and locked into position using barrel connectors on the previous miguel at L2-L3. Transverse processes of T12 L1-L2 were then burred to subcortical bleeding bone. Infuse collagen sponge combined with Koros bone graft and local graft placed in posterior gutters. Versa wrap placed over the exposed dura. 15 round YANETH drain inserted. Incision was then closed with 1 Vicryl to fascia 2-0 Vicryl subcutaneously and 4 Monocryl for final skin closure. Steri-Strips sterile dressing placed. Patient waken taken to PACU stable condition. Please note spinal cord monitoring was utilized at the procedure no changes noted. Lito Garcia was present at the entire procedure and all the patient positioning complex portions of the surgery and final skin closure. Im ordering 20 grams of Triple Buhl Collagen Powder ([employer] [id number]) to treat an incision wound that was caused by a spine procedure. The incision is approximately 2 cm(W) x 4 cm(L) into the joint (D) in size and is a full thickness wound. Triple Buhl collagen comes in 1 gram packets so 20 packets were ordered. Given the size of the wound, with light to moderate exudate I chose to order a 20 day supply. The patient will be provided instructions for proper application of the collagen wound kit. The patient will be asked to apply the collagen powder daily and then cover it with sterile dressings dispensed. Collagen was selected as I expect the collagen to attract monocytes and fibroblasts, act as a sacrificial substrate for MMPs, and ultimately proved a matrix for tissue and vessel growth. The collagen will act as a primary dressing in this scenario. It is medically necessary for proper healing of these wounds to improve bioavailability and contact with each wound surface, this is also to help prevent infection of wounds and promote healing ultimately leading to a better healing outcome and limit the risk of infection. I attest to the content of the Intraoperative Record and any orders documented therein. Any exceptions are noted below.
[2024-05-03] MEDS: fentaNYL citrate PF 100 MCG/2 ML VIAL IV PRN (13:55)
--- NOTE | 2024-05-03 13:55 | Fluoroscopy Report ---
FL lumbar spine 2-3V CLINICAL HISTORY: L1-L2 DECOMPRESSION T12-L2 FUSION TECHNIQUE: 3 views were obtained with the C-arm in the OR with the above procedure. Total fluoroscopy time was 32.1 seconds. Radiation dose was 10.15 mGy. Comparison: Comparison is made to lumbar spine radiographs 05/30/2022 FINDINGS/IMPRESSION: Intraoperative images were obtained of T12-L2 fusion. Please correlate with intraoperative fluoroscopy and operative report. ACT 112: Negative or not required by law. Electronically signed by: nAish Youssef M.D. 05/03/2024 1:54 PM
[2024-05-03] MEDS: HYDROmorphone INJ 1 MG/ML SYRINGE IV PRN (14:15)
--- NOTE | 2024-05-03 14:28 | Anesthesiology Progress Note ---
Date of Service May 03, 2024 Anesthesia Post Procedure Vital Signs Vital Signs: Temp Pulse Resp BP BP Pulse Ox O2 Del Method 05/03/24 14:15 82 14 119/61 100 Nasal Cannula 05/03/24 14:05 93 H 18 114/55 L 99 Nasal Cannula 05/03/24 13:55 95 H 16 111/89 99 Oxymask 05/03/24 13:45 36.3 C L 98 H 18 127/74 99 Oxymask 05/03/24 09:33 Room Air 05/03/24 09:33 36.6 C 69 18 107/72 96 Room Air O2 Flow Rate 05/03/24 14:15 3 05/03/24 14:05 3 05/03/24 13:55 4 05/03/24 13:45 6 05/03/24 09:33 05/03/24 09:33 Pain Intensity Lower Back: Pain Intensity: 6 Transfer of Care Handoff Completed per policy Notes Mental Status: alert / awake / arousable Patient Amnestic to Procedure: Yes Nausea / Vomiting: adequately controlled Pain: adequately controlled Airway Patency, RR, SpO2: stable & adequate BP & HR: stable & adequate Hydration State: stable & adequate Anesthetic Complications: no major complications apparent
[2024-05-03] MEDS ORDERED: PROMETHAZINE 12.5 MG/50.5 ML BAG IV PRN (15:06)
[2024-05-03] MEDS ORDERED: FAMOTIDINE 20 MG TAB PO PRN (15:06)
[2024-05-03] MEDS ORDERED: ALBUTEROL HFA 8 GM INHALER INH PRN (15:06)
[2024-05-03] MEDS ORDERED: LORazepam 0.5 MG TAB PO PRN (15:06)
[2024-05-03] MEDS ORDERED: ACETAMINOPHEN 1,000 MG/100 ML VIAL IV PRN (15:06)
[2024-05-03] MEDS ORDERED: hydrOXYzine HCl 25 MG TAB PO PRN (15:06)
[2024-05-03] MEDS ORDERED: MAGNESIUM HYDROXIDE SUSP 30 ML UDC PO PRN (15:06)
[2024-05-03] MEDS ORDERED: DO NOT ADMINISTER FLU VACCINE PRN (15:06)
[2024-05-03] MEDS ORDERED: SOD PHOSPHATE/SOD BIPHOSPHATE ENEMA 132 ML BTL PR PRN (15:06)
[2024-05-03] MEDS ORDERED: ALUMINUM/MAGNESIUM SUSP 30 ML UDC PO PRN (15:06)
[2024-05-03] MEDS ORDERED: bisacodyL 10 MG SUPP PR PRN (15:06)
[2024-05-03] MEDS ORDERED: ACETAMINOPHEN 500 MG TAB PO PRN (15:06)
[2024-05-03] MEDS ORDERED: MEDICAL MARIJAUNA INH PRN (15:06)
[2024-05-03] MEDS ORDERED: DO NOT ADMINISTER PNEUMOCOCCAL VACCINE PRN (15:06)
[2024-05-03] MEDS ORDERED: ONDANSETRON 4 MG OD TAB PO PRN (15:06)
[2024-05-03] MEDS ORDERED: LORazepam 2 MG/1 ML VIAL IV PRN (15:06)
[2024-05-03] MEDS ORDERED: diphenhydrAMINE Capsule 25 MG CAP PO PRN (15:06)
[2024-05-03] MEDS ORDERED: METOCLOPRAMIDE HCL INJ 5 MG/ML 2 ML VIAL IV PRN (15:06)
[2024-05-03] MEDS: oxyCODONE HCL IR 5 MG TAB (IMMEDIATE RELEASE) PO PRN (16:01)
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
[2024-05-03] MEDS: LACTATED RINGER'S 1,000 ML IV SCH (16:52)
[2024-05-03] MEDS: NICOTINE 14 MG/24 HR PATCH TD SCH (18:42)
[2024-05-03] MEDS: traMADol HCL 50 MG TABLET PO PRN (18:42)
[2024-05-03] MEDS: HYDROmorphone INJ 0.5 MG/0.5 ML SYR IV PRN (19:44)
[2024-05-03] MEDS: ceFAZolin 1000MG 1,000 MG/7.5 ML SYR IV SCH (20:40)
[2024-05-03] MEDS: DOCUSATE SODIUM/SENNA 50/8.6MG TAB PO SCH (20:40)
[2024-05-03] MEDS: clonazePAM 1 MG TAB PO PRN (20:41)
[2024-05-04] MEDS: HYDROmorphone INJ 1 MG/ML SYRINGE IV PRN (00:18)
[2024-05-04] MEDS ORDERED: Nursing to Pharmacy Communication SCH (03:30)
[2024-05-04] MEDS: POLYETHYLENE (MIRALAX) 17 GM PACK PO SCH (06:11)
[2024-05-04 07:22] LABS: Basophils # (auto) 0.01 K/uL (0.00-0.20); Basophils % (auto) 0.1 %; Hemoglobin 11.7 g/dl (12.0-16.0); Immature Granulocytes # (auto) 0.06 K/uL (0.01-0.20); Immature Granulocytes % (auto) 0.5 %; Lymphocytes # (auto) 1.52 K/uL (1.20-3.40); Lymphocytes % (auto) 13.1 %; Mean Corpuscular Hemoglobin 32.9 pg (25.0-34.0); Mean Corpuscular Hgb Conc 33.4 g/dL (32.0-36.0); Mean Corpuscular Volume 98.3 fL (80.0-100.0); Mean Platelet Volume 10.2 fL (9.4-12.4); Monocytes # (auto) 1.04 K/uL (0.11-0.59); Neutrophils # (auto) 8.95 K/uL (1.40-6.50); Neutrophils % (auto) 77.3 %; Platelet Count 284 K/uL (130-400); RDW Coefficient of Variation 13.2 % (11.5-14.5); RDW Standard Deviation 47.6 fL (36.4-46.3); Red Blood Count 3.56 M/uL (4.20-5.40); White Blood Count 11.58 K/ul (4.8-10.8)
[2024-05-04 07:45] LABS: BUN Creatinine Ratio 18.2 (10-20); Calcium 8.8 mg/dl (8.6-10.3); Creatinine Clr Calc Pharmacy 107.1 ml/min; Est GFR (Non-African American) 107.8 ml/min; Potassium 3.6 mmol/L (3.5-5.1)
[2024-05-04 07:49] VITALS: RESP 16
--- NOTE | 2024-05-04 10:00 | Discharge Summary ---
Date of Service May 04, 2024 Admission HPI Per Admitting Provider This is a 53-year-old female presents for chronic persistent back and leg pain after failing course of nonoperative care is here for surgical intervention. Principal Diagnosis Lumbar spinal stenosis with neurogenic claudication Discharge Data Allergies Allergy/AdvReac Type Severity Reaction Status Date / Time No Known Allergies Allergy Unknown Verified 05/03/24 09:31 Consultations 05/03/24 15:06 Consult Hospitalist Routine Procedures Performed Operation Date: 05/03/24 10:35 Actual Procedures p L1-L2 Decompression, T12-L2 Fusion with Spinal Cord Monitoring(Not Applicable) - Emir Baker DO Ordered Studies 05/03/24 10:35 FL lumbar spine 2-3V Routine Hospital Course (1) Lumbar stenosis with neurogenic claudication: Patient underwent lumbar decompression fusion tolerates well was taken to orthopedic for postoperative postop day #1 she is up and ambulating. Pain well- controlled. Extra-strength testing. Subsequently discharged home. Discharge orders instructions found in chart for further review. Total Time Total Time Spent Total Time Spent (In Minutes): 20 minutes Discharge Plan Discharge Items Patient Disposition: Home - Self-Care Reason For Visit: Intervertebral Disc Degeneration Lumbar Region, [place] Discharge Diagnosis: Lumbar spinal stenosis with neurogenic claudication Activity: As commented below Non-emergency contact: Primary Care Provider Call non-emergency contact if: you have any medication questions Follow-up/Referrals: Lito Preciado [Primary Care Provider] - Diet: Regular Addtl Attending Provider Instructions: ACTIVITY RECOMMENDATIONS: SELF CARE INSTRUCTIONS AFTER THORACIC/LUMBAR FUSIONS 1. You may walk to your tolerance. It is good exercise for your legs and back. Expect some back and intermittent leg aches and pains. 2. You may perform "counter-top" level activities (make a sandwich, merna with a project, etc.). 3. No bending or lifting of more than 10 pounds or back twisting of any nature (roll like a log when turning in bed). 4. You may ride in a car for 20-30 minutes at a time. No driving until after your first visit with your doctor. 5. Frequent changes of position and restricting sitting to 30 minutes at a time will help limit the amount of back spasms and stiffness you may experience. 6. You may discontinue the use of ambulatory aids (cane, crutches, etc.) once your strength and confidence allow. 7. You may administrative representative the shower and let water strike your incision when you arrive home at least once daily. Do not take a tub bath, sit in a hot tub or go into a swimming pool until after your first recheck in the office. SPECIAL CARE INSTRUCTIONS: VERY IMPORTANT TO READ AND REVIEW A. Your surgical incision has been closed with a cosmetic suture under the skin that will dissolve in about 6 weeks. In 14 days, you can use a pair of clean scissors and cut the suture that is left outside of the skin at the ends of your incision. 1. The small skin tapes can be removed 7 days after surgery if they have not fallen off by that point. 2. You may keep the wound open to air as much as possible to promote healing after post-op day number 5 unless told otherwise by your doctor. 3. If you think the wound looks like it is becoming infected (redness or worsening drainage) and/or you are experiencing fever, chill or worsening back pain and muscle spasms, contact the office so that we may evaluate you as soon as possible. B. Complications are uncommon, but please contact us if you have any signs or symptoms of: 1. wound infection (fever higher than 102.5 degrees F, redness, separation of wound, drainage, or increasing pain from the incision) 2. blood clots in legs (pain, swelling, redness and warmth in legs) 3. urinary tract infection (fever higher than 102.5 degrees F, burning upon urination or increased frequency of urination) 4. nerve problems (inability to walk on your toes or heels, numbness, loss of bowel or bladder control) 5. any other symptoms that concern you C. Please call the office at if you have any concerns or questions about your operation or recovery. D. No smoking! Smoking drastically decreases the chance of a solid fusion. E. Do not take any anti-inflammatory medications (Indocin, Advil, Motrin, Aspirin, Naprosyn, etc.) as these may inhibit the chance of a solid fusion. Tylenol is okay to take for pain. MANAGING PAIN AFTER SPINAL SURGERY 1. Narcotic medication is intended for short-term use and will be provided for surgical pain. Surgical pain usually lasts for a period of 4-6 weeks. Narcotic medication includes Percocet, Vicodin, Darvocet, Tylenol #3 or Lortab. 2. Longer-term pain is more appropriately treated with non-narcotic medication such as Tylenol ES. 3. Muscle spasm is not appropriately treated with narcotics. Muscle relaxers such as Soma, Flexeril or Skelaxin can be used along with Tylenol ES. 4. Remember that we all live with some "aches and pains". This is not unusual or uncommon after an injury or as we get older. a. Back pain is expected and may include muscle spasms for 4 to 6 weeks after surgery. The pain should gradually improve. If the pain worsens for no apparent reason, please contact the office. b. Intermittent leg pain may also be experienced and should not be concerned about unless it worsens for no apparent reason. If so, please contact the office. 5. We will provide appropriate medication within the normal guidelines of their prescribed use. We will also be very cautious and aware of potential abuse and extended duration of patients' medication needs. a. Pain medications are for your comfort and to assist with sleep and rest so that the tissue can heal. They are not provided in order to return to normal activity and should not be used through the day. To do so or worsening pain at night can result from ongoing tissue damage and development of tolerance to the prescribed medicine. 6. Please allow 2-3 days to process refills. Prescriptions will not be mailed but must be picked up at the office. FOLLOW UP VISIT: Keep your scheduled follow-up appointment. Any questions, please call the office at . Pending Studies at Discharge: No Stand-Alone Forms: [facility] C[facility] Medications and DC Order Prescriptions: New tramadol 50 mg tablet 50 mg PO Q6H PRN (Reason: pain, moderate) Qty: 30 0RF oxycodone 5 mg tablet 5 mg PO Q6H PRN (Reason: pain) Qty: 30 0RF Continued cholecalciferol (vitamin D3) 2,000 unit capsule 2,000 units PO QAM duloxetine 60 mg capsule,delayed release(DR/EC) 60 mg PO QAM Patient Comments: Medical Marijauna 1 dose inhalation DAILY PRN (Reason: Pain) clonazepam [Klonopin] 1 mg tablet 1 mg PO TID PRN (Reason: Anxiety) albuterol sulfate [Ventolin HFA] 90 mcg/actuation HFA aerosol inhaler 2 puff INHALATION DIRECTED PRN (Reason: Shortness Of Breath Or Wheezing) Patient Comments: USED PRN SOB Discharge Orders: Discharge Order (Routine); Ordered 05/04/24 Ordered By: Emir Baker Admission Data Admit Date/Time: 05/03/24 13:30 Attending Provider: Emir Baker Admit Provider: Emir Baker Primary Care Provider: Lito Preciado Other Providers: Brandy Pope
[2024-05-04] MEDS: dexAMETHasone 6 MG in SYRINGE 0 ML IV SCH (10:23)
[2024-05-04] MEDS: CHOLECALCIFEROL 25 MCG (1000 UNITS) TAB PO SCH (10:23)
[2024-05-04] MEDS: DULoxetine HCL 60 MG CAP PO SCH (10:23)
[2024-05-04 11:14] VITALS: BP 96/64; PULSE 94; TEMP 97.7; O2SAT 96
== END 2024-05-04 13:06 | disposition home or self-care (01) | DRG 455 ==
LOC: ASU 08:52 → 3N 13:30